=== PATIENT | female | born 1995 | race Two or more races ===

== ENCOUNTER 2020-09-17 09:00 | Outpatient (REF) | payer OTHER, SELFPAY ==
--- NOTE | 2020-09-17 09:20 | XR_ITS ---
EXAMINATION: XR LUMBOSACRAL SPINE CLINICAL INFORMATION: Dorsal to. COMPARISON: None TECHNIQUE: Three views of the lumbosacral spine. FINDINGS: There is normal lumbar lordosis. The vertebral heights, alignment and disc heights are normal. No visible acute fracture, dislocation or subluxation seen. The soft tissues are normal. The SI joints are symmetrical and normal. There is scattered stool in the rectum and sigmoid colon. The paravertebral soft tissues are normal. XR/XR lumbar spine 2-3V IMPRESSION: Unremarkable lumbar spine exam.
[2020-09-17 09:37] LABS: MANUAL DIFF FLAG NO
[2020-09-17 09:47] LABS: Basophils Percent Auto 0.4 % (0-2); Eosinophils Absolute Auto 0.2 X10*3/uL (0.0-0.4); Eosinophils Percent Auto 2.8 % (0-4); Hematocrit 41.5 % (37-47); Hemoglobin 13.7 g/dl (12.0-16.0); Imm Gran Abs Auto 0.02 X10*3/uL (0.00-0.03); Imm Gran Pct Auto 0.3 % (0.0-0.4); Lymphocytes Absolute Auto 2.2 X10*3/uL (1.2-4.9); Lymphocytes Percent Auto 31.8 % (20-40); Mean Corpuscular Hemoglobin 29.9 pg (27.0-33.0); Mean Corpuscular Volume 90.6 fL (80-98); Mean Platelet Volume 10.5 fL (9.4-12.3); Monocytes Absolute Auto 0.4 X10*3/uL (0.1-1.2); Monocytes Percent Auto 5.1 % (2-11); Neutrophils Absolute Auto 4.1 X10*3/uL (2.0-8.3); Neutrophils Percent Auto 59.6 % (45-73); Platelet Count 214 X10*3/uL (160-400); Red Blood Count 4.58 X10*6/uL (4.20-5.50); Red Cell Distribution Width 11.6 % (11.0-16.0); White Blood Count 6.8 X10*3/uL (4.8-10.8)
[2020-09-17 09:49] LABS: Glucose Urine UA NEG (NEG); Specific Gravity - Urine >= 1.030 (1.005-1.025); Urine Blood TRACE (NEG); Urine Protein NEG (NEG-TRACE)
[2020-09-17 09:50] LABS: Leukocyte Esterase Urine NEG (NEG); Nitrite Urine NEG (NEG); Urine Ketones NEG (NEG)
[2020-09-17 10:02] LABS: Alanine Aminotransferase 13 U/L (0-31); Albumin Level 4.5 g/dL (3.5-5.0); Alkaline Phosphatase 54 U/L (39-117); Anion Gap 13 (12-20); Aspartate Amino Transferase 16 U/L (5-31); Bilirubin Total 0.3 mg/dL (0.0-1.0); Blood Urea Nitrogen 19 mg/dL (9-16); Calcium 9.1 mg/dL (8.4-10.2); Carbon Dioxide 26 mmol/L (22-29); Chloride 107 mmol/L (96-108); Cholesterol 177 mg/dL; Estimated Glomerular Filt Rate > 60; Glucose Fasting 120 mg/dL (60-99); HDL Cholesterol 47 mg/dL; LDL Cholesterol Calculated 119 mg/dl; Potassium 4.5 mmol/l (3.3-5.1); Sodium 141 mmol/L (135-145); Total Protein 6.9 g/dL (6.5-8.0); Triglycerides 57 mg/dL
[2020-09-17 10:41] LABS: Appearance Urine CLEAR; Color Urine YELLOW
[2020-09-17 10:47] LABS: RBC Urine 0-2 /HPF (0); Squamous Epithelial Cell Urine 1+ /LPF; WBC Urine 0-2 /HPF (0-4)
[2020-09-17 10:48] LABS: Mucus Urine 1+ /LPF
== END 2020-09-17 09:01 | disposition home or self-care (01) ==
LOC: HO.LAB 09:00
PROVIDERS: Visit Provider Internal Medicine
DX: Z00.00 Encounter for general adult medical examination without abnormal findings (principal); M54.9 Dorsalgia, unspecified; E11.9 Type 2 diabetes mellitus without complications; E03.9 Hypothyroidism, unspecified; N39.0 Urinary tract infection, site not specified
CPT/HCPCS: 36415; 72100; 80053; 80061; 81001; 81003; 84443; 85025

== ENCOUNTER 2021-12-15 21:11 | Emergency (ER) | payer OTHER, SELFPAY ==
[2021-12-15 21:22] VITALS: BP 147/93; PULSE 81; RESP 16; TEMP 36.5; O2SAT 100; BMI 26.5
[2021-12-15 21:57] LABS: COVID-19 Test Negative (Negative)
[2021-12-15 21:58] LABS: IDNOW Serial# 16C4AD1C; Influenza A Negative (Negative); Influenza B2 Negative (Negative)
--- NOTE | 2021-12-15 22:11 | ED_ITS ---
HPI - Allergic Reaction General Chief complaint: Allergic Reaction Stated complaint: allergic reaction Time Seen by Provider: 12/15/21 22:07 History of Present Illness HPI narrative: Patient is a 26-year-old female presents today with having congestion watery eyes redness to the skin. There is no change in diet. She has been taking care of a cat that is new. Symptom happened approximately 1 week ago. Attempted some Benadryl with moderate relief. Patient from home. No shortness of breath. No change in voice. Tolerate fluids. Patient from home. No recent travel history Related Data Home Medications Medication Instructions Recorded Confirmed azelastine 0.05 % eye drops 1 drp OPHTHALMIC (EYE) BID 12/15/21 12/15/21 diphenhydramine HCl 25 mg tablet 25 mg PO BEDTIME PRN 12/15/21 12/15/21 (Benadryl Allergy) fluticasone propionate 50 2 spray INTRANASAL DAILY 12/15/21 12/15/21 mcg/actuation nasal spray,suspension peg 400-propylene glycol (PF) 0.4 1 drp OPHTHALMIC (EYE) BID 12/15/21 12/15/21 %-0.3 % eye drops in a dropperette (Systane (PF)) Previous Rx's Medication Instructions Recorded famotidine 20 mg tablet (Pepcid) 20 mg PO BID 5 Days #10 tab 12/15/21 prednisone 20 mg tablet 40 mg PO DAILY #10 tab 12/15/21 Allergies Allergy/AdvReac Type Severity Reaction Status Date / Time lidocaine Allergy Unknown Itching Verified 09/26/21 09:08 Review of Systems Review of Systems: No fever no chills no chest pain or shortness of breath no diaphoresis Positive rash Positive watery eyes Yes all other systems are reviewed and are negative [facility] Past Medical History Attestation statement: The following information was validated with the patient. Surgical History H/O rhinoplasty Family History Family History Mother No problems noted. Father No problems noted. Sister Mental health disorder Social History Social History Housing: Apartment Alcohol intake: never Patient Tobacco Use Status: Never used Tobacco e-Cigarette/Vaping Use: Never Used Second Hand Smoke Exposure: No Advance Directives: No Advance Directives Information Provided: No service: No Current occupational status: employed Cognitive needs: No Hearing needs: No Vision needs: No Physical Exam ED Vital Signs: Vital Signs - 24 hr 12/15/21 21:22 Temperature 97.7 F Pulse Rate 81 Respiratory Rate 16 Blood Pressure 147/93 H Pulse Oximetry 100 BMI result Body Mass Index 26.5 Appearance: Alert. Oriented X3. No acute distress. Eyes: Pupils equal, round and reactive to light. ENT: Pharynx normal. There is no erythema noted posteriorly. There is no lesions inside the mouth. Speech is normal. Neck: Normal inspection. Neck supple. No lymph nodes noted. No crepitus CVS: Normal heart rate and rhythm. Pulses normal. Normal S1 and S2 Respiratory: No respiratory distress. Breath sounds normal. No Wheezing. No rales Abdomen: Soft and nontender. No rigidity. No distention. good BS x4 Skin: Positive erythematous rash over the face no mucosal membrane involvement. Involvement also the neck. Has an irregular border it is red it blanches. Extremities: No lower extremity edema. Neurovascular intact to all extremities. No Lacerations. No Rash Neuro: Oriented X 3. No motor deficit. No sensory deficit. Moving all extermities. No slurred speech MDM - Allergic Reaction MDM Narrative Medical decision making narrative: Question allergic reaction to cats. Will go ahead and give steroid. Pepcid also ordered. Follow-up on an outpatient basis. No other changes in patient's environment. In stable condition. Lab Data Labs: Lab Results 12/15/21 12/15/21 Range/Units 21:31 21:31 COVID-19 (MARIAH) Negative (Negative) COVID-19 Clin Com See Note Influenza Type A (KAMI) Negative (Negative) Influenza Type B (KAMI) Negative (Negative) Influenza A & B Note See Note Discharge Plan Discharge Clinical Impression: Allergic reaction Patient Disposition: Home, Self-Care Instructions: General Allergic Reaction (ED) Prescriptions: New prednisone 20 mg tablet 40 mg PO DAILY Qty: 10 0RF famotidine [Pepcid] 20 mg tablet 20 mg PO BID 5 Days Qty: 10 0RF No Action azelastine 0.05 % Drops 1 drp OPHTHALMIC (EYE) BID 0RF diphenhydramine HCl [Benadryl Allergy] 25 mg Tablet 25 mg PO BEDTIME PRN (Reason: Rash) 0RF fluticasone propionate 50 mcg/actuation [place],Suspension 2 spray INTRANASAL DAILY 0RF Rx Instructions: administer into each nostril Systane (PF) 0.4-0.3 % Dropperette 1 drp OPHTHALMIC (EYE) BID 0RF Referrals: Physician,Unknown J [Primary Care Provider] -
[2021-12-15] MEDS: predniSONE 20 MG TABLET 40 MG PO (22:22)
[2021-12-15] MEDS: Famotidine 20 MG TABLET PO (22:22)
== END 2021-12-15 22:41 | disposition home or self-care (01) ==
PROVIDERS: Emergency Provider Emergency Medicine Emergency Medical Services; PCP Internal Medicine
DX: L50.0 Allergic urticaria (principal); Z20.822 Contact with and (suspected) exposure to COVID-19
CPT/HCPCS: 87502; 87635; 99283

== ENCOUNTER 2022-08-02 16:45 | Emergency (ER) | payer OTHER, SELFPAY ==
--- NOTE | ~2022-08-02 | XR_ITS ---
EXAMINATION: XR CHEST CLINICAL INFORMATION: Cough COMPARISON: None TECHNIQUE: Frontal view of the chest was obtained. FINDINGS: No significant abnormality is noted involving the heart, lungs, mediastinum, bony thorax or soft tissues. XR/XR chest 1V IMPRESSION: Unremarkable examination.
[2022-08-02 16:58] VITALS: BP 149/78; PULSE 82; RESP 16; TEMP 36.8; O2SAT 99; BMI 23.4
--- NOTE | 2022-08-02 17:51 | ED_ITS ---
HPI - General Adult General Chief complaint: General Medical Stated complaint: congested cough,headache Time Seen by Provider: 08/02/22 17:10 Source: patient Mode of arrival: ambulatory Limitations: no limitations History of Present Illness HPI narrative: 27-year-old female recently diagnosed with COVID-19 presents to the emergency room today with congested cough and headache. She states symptoms began on Thursday and she was diagnosed with COVID-19 on by a [facility] COVID test. She denies any chest pain, shortness of breath, fever, chills, headache, or vision changes. Onset (ago): day(s) Related Data Home Medications Medication Instructions Recorded Confirmed azelastine 0.05 % eye drops 1 drp ophthalmic (eye) BID 12/15/21 12/15/21 diphenhydramine HCl 25 mg tablet 25 mg PO BEDTIME PRN Rash 12/15/21 12/15/21 (Benadryl Allergy) fluticasone propionate 50 2 spray intranasal DAILY 12/15/21 12/15/21 mcg/actuation nasal spray,suspension peg 400-propylene glycol (PF) 0.4 1 drp ophthalmic (eye) BID 12/15/21 12/15/21 %-0.3 % eye drops in a dropperette (Systane (PF)) Previous Rx's Medication Instructions Recorded famotidine 20 mg tablet (Pepcid) 20 mg PO BID 5 days #10 tabs 12/15/21 prednisone 20 mg tablet 40 mg PO DAILY #10 tabs 12/15/21 Allergies Allergy/AdvReac Type Severity Reaction Status Date / Time lidocaine Allergy Unknown Itching Verified 09/26/21 09:08 Review of Systems Review of Systems: In addition to documented HPI above, the additional ROS was obtained: Constitutional: No Weight loss, No Fever, No Chills ENT/Mouth: No Ear Pain, No Sinus Pain, No Hoarseness, No Swallowing Difficulty Cardiovascular: No Chest Pain, No SOB Respiratory: No shortness of breath, No Wheezing Gastrointestinal: No Nausea, No Vomiting, No Diarrhea, No Constipation, No Abdominal pain Genitourinary: No Dysuria, No Urinary Frequency, No Hematuria, No Urinary Incontinence/retention, No Urgency, No Flank Pain Musculoskeletal: No joint pain, No Myalgias, No Joint Swelling Skin: No Skin Lesions, No rash Neuro: No Weakness, No Numbness, No Paresthesias Yes all other systems are reviewed and are negative [facility] Past Medical History Attestation statement: The following information was validated with the patient. Source: old records reviewed and obtained from family Surgical History H/O rhinoplasty Family History Family History Mother No problems noted. Father No problems noted. Sister Mental health disorder Social History Social History Housing: Apartment Alcohol intake: never Patient Tobacco Use Status: Never used Tobacco e-Cigarette/Vaping Use: Never Used Second Hand Smoke Exposure: No service: No Current occupational status: employed Cognitive needs: No Hearing needs: No Vision needs: No Physical Exam ED Vital Signs: Vital Signs - 24 hr 08/02/22 16:58 Temperature 98.2 F Pulse Rate 82 Respiratory Rate 16 Blood Pressure 149/78 H Pulse Oximetry 99 Oxygen Delivery Method Room Air BMI result Body Mass Index 23.4 Const General: cooperative, alert and awake Nutritional Appearance: average body habitus Orientation/consciousness: patient oriented x3 Limitations: no limitations HENMT Head: Yes normal to inspection and Yes normocephalic Ears: hearing grossly normal bilaterally and external ears normal General nose exam: Normal external nose present Face and sinus: Yes normal facial exam Mouth: Normal oral and palatal mucosa present Eyes General: appearance normal, both eyes and all related structures Visual Flynn: normal visual flynn by confrontation Alignment and Position: alignment normal Periorbital: periorbital findings normal Eyelids: Yes eyelids normal Conjunctivae: conjunctivae normal Sclerae: sclerae normal Corneas: corneas normal Pupils: Equal, round and reactive pupils present EOM: EOMs intact bilaterally Neck Neck: Yes normal visual inspection, Yes full ROM and Yes no lymphadenopathy Chest Chest palpation & inspection: normal inspection of the chest Resp Effort & Inspection: normal respiratory effort and not labored Auscultation: clear to auscultation bilaterally, no crackles, no rales and no wheezes Cardio Rate: regular rate Rhythm: regular rhythm Back/Spine/Pelvis Cervical Spine: cervical ROM normal Thoracic/Lumbar Spine: thoraco-lumbar ROM normal Skin General skin exam: no rashes or lesions noted Neuro General: patient oriented x3, gait normal, tone normal and moves all extremities Cranial nerves: Yes Equal, round and reactive pupils present Gait exam (Neuro): Normal gait present Motor exam (neuro): 5/5 motor strength present throughout Extrem General: Yes normal to inspection, Yes full ROM and Yes capillary refill normal Medical Decision Making Medical Decision Making MDM Narrative: 27-year-old female recently diagnosed with COVID-19 presents to the emergency room today with congested cough and headache. Chest xray negative for cardiopulmonary disease. Educated to manage symptoms with [id number] Tylenol, Motrin, and/or cough and cold medication. Referral for monoclonal antibody treatment at [facility] submitted at patient request. Educated to return to the emergency department with fever greater than 100.5 despite taking Tylenol and/or Motrin, severe headache, vision changes, shortness of breath, chest pain, or any other concerning symptoms. Recommended follow-up with her primary care provider regarding further treatment and management. Discharge Plan Discharge Clinical Impression: COVID-19 Patient Disposition: Home, Self-Care Instructions: COVID-19 (Coronavirus Disease 2019) (ED) Additional Instructions: You have been diagnosed with COVID-19. Recommended to symptom manage with [id number] Tylenol, Motrin, and/or cough and cold medication. A referral has been submitted for monoclonal antibody treatment at [facility] at your request. They will contact you regarding availability. Please call [phone] if you have any questions. Please return to the emergency department if you have a fever greater than 100.5 despite taking Tylenol and/or Motrin. Please return to the emergency department if you have severe headache, vision changes, shortness of breath, chest pain, or any other concerning symptoms. Recommended follow-up with the primary care provider regarding further treatment and management. Prescriptions: No Action azelastine 0.05 % Drops 1 drp OPHTHALMIC (EYE) BID diphenhydramine HCl [Benadryl Allergy] 25 mg Tablet 25 mg PO BEDTIME PRN (Reason: Rash) fluticasone propionate 50 mcg/actuation [place],Suspension 2 spray INTRANASAL DAILY Rx Instructions: administer into each nostril Systane (PF) 0.4-0.3 % Dropperette 1 drp OPHTHALMIC (EYE) BID prednisone 20 mg tablet 40 mg PO DAILY Qty: 10 0RF famotidine [Pepcid] 20 mg tablet 20 mg PO BID 5 Days Qty: 10 0RF Referrals: Byron (AGAPITO),MD Thaddeus [Primary Care Provider] - Stand Alone Forms: Work/School Release Print Language: Maltese
[2022-08-02 18:12] LABS: Influenza A PCR NEGATIVE (Negative); Influenza B PCR NEGATIVE (Negative); Resp Syncy Virus RNA Qual PCR NEGATIVE (Negative); SARS COV2 PCR INHOUSE POSITIVE (Negative)
== END 2022-08-02 18:30 | disposition home or self-care (01) ==
PROVIDERS: Nurse Practitioner Family; Emergency Provider Emergency Medicine Emergency Medical Services; PCP Internal Medicine
DX: U07.1 COVID-19 (principal)
CPT/HCPCS: 0241U; 71045; 99282; 99283

== ENCOUNTER 2022-08-21 09:30 | Outpatient (REF) | payer OTHER, SELFPAY ==
[2022-08-21 09:47] LABS: MANUAL DIFF FLAG NO
[2022-08-21 10:29] LABS: Basophils Percent Auto 0.4 % (0-2); Eosinophils Absolute Auto 0.1 X10*3/uL (0.0-0.4); Eosinophils Percent Auto 1.6 % (0-4); Hemoglobin 13.1 g/dl (12.0-16.0); Imm Gran Abs Auto 0.02 X10*3/uL (0.00-0.03); Imm Gran Pct Auto 0.4 % (0.0-0.4); Lymphocytes Absolute Auto 1.8 X10*3/uL (1.2-4.9); Lymphocytes Percent Auto 31.6 % (20-40); Mean Corpuscular HGB Conc 33.6 g/dl (31.0-35.0); Mean Corpuscular Hemoglobin 30.2 pg (27.0-33.0); Mean Corpuscular Volume 89.9 fL (80.0-98.0); Mean Platelet Volume 10.8 fL (9.4-12.3); Monocytes Absolute Auto 0.3 X10*3/uL (0.1-1.2); Monocytes Percent Auto 4.8 % (2-11); Neutrophils Absolute Auto 3.5 x10*3/uL (2.0-8.3); Neutrophils Percent Auto 61.2 % (45-73); Platelet Count 204 X10*3/uL (160-400); Red Blood Count 4.34 X10*6/uL (4.20-5.50); Red Cell Distribution Width 11.8 % (11.0-16.0); White Blood Count 5.7 X10*3/uL (4.8-10.8)
[2022-08-21 11:20] LABS: Alanine Aminotransferase 15 U/L (0-31); Albumin Level 4.4 g/dL (3.5-5.0); Alkaline Phosphatase 57 U/L (39-117); Anion Gap 10 (12-20); Aspartate Amino Transferase 16 U/L (5-31); Bilirubin Total 0.9 mg/dL (0.0-1.0); Blood Urea Nitrogen 15 mg/dL (9-16); Calcium 9.3 mg/dL (8.4-10.2); Carbon Dioxide 26 mmol/L (22-29); Chloride 107 mmol/L (96-108); Cholesterol 177 mg/dL; Estimated Glomerular Filt Rate > 60; Glucose Fasting 104 mg/dL (60-99); HDL Cholesterol 41 mg/dL; LDL Cholesterol Calculated 119 mg/dl; Potassium 4.2 mmol/L (3.3-5.1); Sodium 139 mmol/L (135-145); Total Protein 6.7 g/dL (6.5-8.0); Triglycerides 88 mg/dL
[2022-08-21 11:25] LABS: HBS Num1 0.04 mIU/mL (0-7.99); ~Hepatitis B Surface Antibody NONREACTIVE (Nonreactive)
[2022-08-26 19:02] LABS: Rubella IgG Antibody 4.32 Index
== END 2022-08-21 09:31 | disposition home or self-care (01) ==
LOC: HO.LAB 09:30
PROVIDERS: PCP Internal Medicine; Visit Provider Internal Medicine
DX: Z00.00 Encounter for general adult medical examination without abnormal findings (principal); Z13.0 Encounter for screening for diseases of the blood and blood-forming organs and certain disorders involving the immune mechanism; Z28.39 Other underimmunization status
CPT/HCPCS: 36415; 80053; 80061; 84443; 85025; 86706; 86735; 86762; 86765; 86787